=== PATIENT | male | born 1965 | race Caucasian/White ===

== ENCOUNTER 2024-10-24 12:36 | Inpatient (IN) | payer OTHER, SELFPAY ==
--- OUTSIDE RECORDS SUMMARY | 2023-06-02 09:00 | XMS_ITS ---
Author Organization [facility]ILL[facility] Address [address] [place] [address] Care Team Providers Care Digital Media Associate Name Role Phone Rodolfo Jang [facility] [phone] REASON FOR VISIT test results MEDICATIONS Medication SIG (Take, Route, Fr equency, Duration) Notes Start Date End Date Status Lisinopril 20 MG 1 tablet Orally Once a day for 90 days Active Encounters Encounter Location Date Provider Diagnosis [address] [address] 06/02/2023 Rodolfo Jang Colon cancer screening Z12.11 ASSESSMENTS Encounter Date Diagnosis Assessment Notes Treatment Notes Treatment Clinical Notes Section Notes 06/02/2023 Colon cancer screening (ICD-10 - Z12.11) cologuard negative at this time repeat 2026 ( 3years ) 94 % accurate as opposed to colonscopy that is 99 % accurate colonoscopy is test of choice PLAN OF TREATMENT Treatment Notes Assessment Notes Colon cancer screening cologuard negative at this time repeat 2026 ( 3years ) 94 % accurate as opposed to colonscopy that is 99 % accurate colonoscopy is test of choice Next Appt Details Follow Up: yearly for physic al examination, Reason: Progress Notes * Jed TOLEDODOB:1965 (57 yo M)Acc No.[id number]:06/02/2023 Patient: TREJeremiasJed Provider: Rodolfo Jang D.O. :1965 Age:57 Y Sex:Male Date:06/02/2023 Address:[address] [id number] Subjective: * Chief Complaints: * Test results * HPI: *: phone call for test results cologuard was done 05/18/2023 was negative. * Medical History: * Surgical History: * Hospitalization/Major Diagno stic Procedure: * Medications: TakingLisinopril 20 MG Tablet 1 tablet Orally Once a day Taking Lisinopril 20 MG Tablet 1 tablet Orally Once a day Objective: Assessment: * Assessment: 1. Colon cancer screening - Z12.11 (Primary) Plan: * Treatment: * Procedure Codes: * Follow Up: yearly for physical examination * Billing Information: * Visit Code: 07082 PHN E/M by PHYS 11-20 MIN. * Procedure Codes: * Sign off status: Completed true * Provider: Rodolfo Jang D.O. Date: 06/02/2023 History and Physical Notes * HPI (History of Present Illness) Category Sub-Category Detail Notes Category Not es * phone call for test results cologuard was done 05/18/2023 was negative
--- OUTSIDE RECORDS SUMMARY | 2023-06-14 10:30 | XMS_ITS ---
Author Organization [facility]ILLING [facility]ACILITY [facility] Address [address] [place] [address] Care Team Providers Care Rubber Insulator Name Role Phone Nate Woods Unavailable [phone] ALLERGIES Allergen (clinical drug ingredient) Drug/Non Drug Allergy documented on EMR Reaction Allergy Type Onset Date Status Penicillin rash Drug Allergy Active REASON FOR REFERRAL Reason 2 lesion to right po sterior torso Diagnosis 1 Primary hypertension (I10) Diagnosis 2 Skin lesions (L98.9) Referral Organization [facility] Referring Provider First Name Nate Referring Provider Last Name Chuck Referring Provider Speciality Family Med icine Referred Provider Specialty Dermatology Referral Priority Routine REASON FOR VISIT Med refill MEDICATIONS Medication SIG (Take, Route, Fr equency, Duration) Notes Start Date End Date Status Lisinopril 20 MG 1 tablet Orally Once a day for 90 days 06/14/2023 Active Lisinopril 20 MG 1 tablet Orally Once a day for 90 days Active SOCIAL HISTORY Tobacco Use: Social History Observation Description Date Details (start date - stop date) Never Smoker NA - NA Sex Assigned At : Social History Observation Description Sex Assigned At Unknown Tobacco Use/Smoking Question Answer Notes Are you a nonuser Alcohol Questionnaire Question Answer Notes Did you have a drink contain ing alcohol in the past year? Yes How often did you have a dri nk containing alcohol in the past year? 2 to 3 times a week (3 points) How many drinks did you have on a typical day when you were drinking in the past year? 5 or 6 drinks (2 points) How often did you have 6 or more drinks on one occasion in the past year? Monthly (2 points) Points 7 Interpretation Positive Section Notes: Lives with , brother sta callie with him while going through a divorce, 1 dog inside, also has hunting dogs. 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 VITAL SIGNS Temperature 98.4 degrees Fahrenheit 06/14/19 24 Heart Rate 86 /min 06/14/2023 Oximetry 98 % 06/14/2023 Blood pressure systolic 118 mm Hg 06/14/19 24 Blood pressure diastolic 80 mm Hg 024 Respiratory Rate 18 /min 06/14/2023 Weight 214.6 lbs 06/14/2023 Height 71.25 in 06/14/2023 BMI 29.72 06/14/2023 Weight-kg 97.34 kg 06/14/2023 Encounters Encounter Location Date Provider Diagnosis [facility] [address] [place] [address] 06/14/2023 Nate Woods Primary hypertension I10 and Skin lesions L98.9 ASSESSMENTS Encounter Date Diagnosis Assessment Notes Treatment Notes Treatment Clinical Notes Section Notes 06/14/2023 Primary hypertension (ICD-10 - I10) 06/14/2023 Skin lesions (ICD-10 - L98.9) PLAN OF TREATMENT Medication Medication Name Sig Start Date Stop Date Notes Lisinopril 20 MG 1 tablet Orally Once a day for 90 days Referrals Referral Date Details 2 lesion to right po sterior torso Next Appt Details Follow Up: prn, Reason: Progress Notes * Jed TOLEDODOB:1965 (57 yo M)Acc No.[id number]:06/14/2023 Patient: Jed TOLEDO Provider: Nate Woods DO :1965 Age:57 Y Sex:Male Date:06/14/2023 Address:[address] [place], [place] [id number] Subjective: * Chief Complaints: * Med refill * HPI: Depression/Anxiety Screening: PHQ-2 (2015 Edition)* Little interest or pleasure in doing things? Not at all, Feeling down, depressed or hopeless? Not at all, Total score: 0. Depression Screening: MARIANO-7 (2018 Edition) Feeling nervous, anxious, or on edge Not at all, Not being able to stop or control worrying Not at all, Worrying too much about different things Not at all, Trouble relaxing Not at all, Being so restless that it is hard to sit still Not at all, Becoming easily annoyed or irritable Not at all, Feeling afraid as if something awful might happen Not at all, Total MARIANO-7 Score 0, Interpretation of Total (0 to 4) No Anxiety. * ROS: General/Constitutional: General Denies:, chills, fatigue, fever. Eyes Denies:, blurred vision. ENT DENIES: , ear(s) pain, hearing decreased, nose congestion/drainage. Cardiovascular DENIES: , chest pain or tightness, irregular heartbeat, palpitations. Respiratory DENIES: , cough, shortness of breath, wheezing. Gastrointestinal DENIES: , abdominal pain, constipation, diarrhea, nausea, vomiting. Genitourinary DENIES: , dysuria, polyuria. Skin right post aspect to lesions with brown crusting. Musculoskeletal DENIES: , back pain, muscle aches. Peripheral Vascular DENIES: , claudication, varicose veins. Endocrine DENIES: , cold intolerance, heat intolerance, polydipsia. Hematology DENIES: , bleeding prolonged, bruising easily, glands swollen. * Medical History: * Surgical History: neck and back C7 1986right arm 1984nose surgery 1983Left hand 11/2022 * Hospitalization/Major Diagno stic Procedure: Denies Past Hospitalization * Family History: Father: alive 82 yrs, diagnosed with Hypertension, Hyperlipidemia, Coronary atherosclerosis. Mother: alive 80 yrs. Paternal G F: , diagnosed with Coronary atherosclerosis. Paternal G M: , diagnosed with Coronary atherosclerosis. * Social History: Tobacco Use: Tobacco Use/Smoking Are you a nonuser. Habits (drugs/alcohol/caffeine): Caffeine Caffeinated beverages Yes, -Coffee (cups per day) 1. Alcohol Use alcohol currently Yes, Drinks per week 5-6 drinks 2-3 times a week. Alcohol Questionnaire Did you have a drink containing alcohol in the past year? Yes, How often did you have a drink containing alcohol in the past year? 2 to 3 times a week (3 points), How many drinks did you have on a typical day when you were drinking in the past year? 5 or 6 drinks (2 points), How often did you have 6 or more drinks on one occasion in the past year? Monthly (2 points), Points 7, Interpretation Positive. Drugs Have you used drugs other than for medical reasons? No. Lives with , brother staying with him while going through a divorce, 1 dog inside, also has hunting dogs. 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 * Medications: TakingLisinopril 20 MG Tablet 1 tablet Orally Once a day Medication List reviewed and reconciled with the patientTaking Lisinopril 20 MG Tablet 1 tablet Orally Once a day Medication List reviewed and reconciled with the patient * Allergies: Penicillin: rash - Allergy - Criticality Unknownno[Allergies Verified] Objective: * Vitals: Temp:98.4F, HR:86, Oxygen sat:98%, BP:118/80mm Hg, RR:18/min, Wt:214.6lbs, Wt Chg: -9.4 lbs, Wt Chg %: -4.2%, Ht:71.25in, BMI:29.72, Wt-k.34 kg. * Examination: General Examination *: GENERAL APPEARANCE: alert and oriented, no acute distress, pleasant, well nourished. HEAD: atraumatic, normocephalic. EYES: extraocular movements intact, conjunctiva clear, sclera non-icteric. EARS: auditory canal clear, light reflex present, tympanic membrane intact. NOSE: nares patent, no lesions . THROAT: no erythema, no exudate, pharynx normal, tonsils normal, uvula midline . LYMPH NODES: no anterior cervical adenopathy. HEART: S1/S2 normal, regular rate and rhythm, no murmurs, no rubs, no gallops. LUNGS: clear to auscultation, good air movement, no respiratory distress. ABDOMEN: soft, non-tender, normal bowel sounds, non-distended. SKIN: s uspicious lesions x 2 to right side/post. EXTREMITIES: no edema, capillary refill normal. PERIPHERAL PULSES: 2+ throughout. NEUROLOGIC: alert, cooperative, moving all extremities spontaneously, non-focal. MUSCULOSKELETAL: no swelling or deformity. Assessment: * Assessment: 1. Primary hypertension - I10 (Primary) 2. Skin lesions - L98.9 Plan: * Treatment: * Procedure Codes: 27190 Anxiety [id number] Depression [id number] Nicotine Screening * Follow Up: prn * Billing Information: * Visit Code: 54350 Level 3 Est Patient Chronic Care. * Procedure Codes: 61022 Anxiety Screening. 3351F Depression Screening - NEGATIVE Screening (PHQ9 <10). 1036F Nicotine Screening - Non-user (Current). * Sign off status: Completed true * Provider: Nate Woods DO Date: 06/14/2023 History and Physical Notes * HPI (History of Present Illness) Category Sub-Category Detail Notes Category Not es Depression/Anxiety Screening PHQ-2 (2014 Edition)* Little interest or pleasure in doing things?: Not at all Feeling down, depressed or hopeless?: No t at all Total score:: 0 Depression Screening MARIANO-7 (2018 Edition) Feelin g nervous, anxious, or on edge: Not at all Not being able to stop or control worryi ng: Not at all Worrying too much about different things : Not at all Trouble relaxing: Not at all Being so restless that it is hard to sit still: Not at all Becoming easily annoyed or irritable: No t at all Feeling afraid as if something awful mickie ht happen: Not at all Total MARIANO-7 Score: 0 Interpretation of Total: (0 to 4) No Anx iety Examination Category Sub-Category Detail Notes Category Not es General Examination * GENERAL APPEARANCE: alert and oriented, no acute distress, pleasant, well nourished HEAD: atraumatic, normocep halic EYES: extraocular movement s intact, conjunctiva clear, sclera non-icteric EARS: auditory canal clear , light reflex present, tympanic membrane intact NOSE: nares patent, no les ions THROAT: no erythema, no exud ate, pharynx normal, tonsils normal, uvula midline LYMPH NODES: no anterior cervical adenopathy SKIN: suspicious lesions x 2 to right side/post HEART: S1/S2 normal, regula r rate and rhythm, no murmurs, no rubs, no gallops LUNGS: clear to auscultatio n, good air movement, no respiratory distress ABDOMEN: soft, non-tender, no rmal bowel sounds, non-distended MUSCULOSKELETAL: no swelling or defor mity EXTREMITIES: no edema, capillary refill normal PERIPHERAL PULSES: 2+ throughout NEUROLOGIC: alert, cooperative, moving all extremities spontaneously, non-focal Consultation Request Notes Referral Date Referring Provider Referred Provider Not es 06/14/2023 Nate Woods , 2 lesion to ri ght posterior torso
--- OUTSIDE RECORDS SUMMARY | 2023-10-03 08:36 | XMS_ITS ---
Author Organization [facility]ILLING FACILITY [facility] Address [address] [place] [address] Care Team Providers Care Bridge Maintainer Name Role Phone Alicia Underwood [phone] REASON FOR VISIT Medication Refill MEDICATIONS Medication SIG (Take, Route, Fr equency, Duration) Notes Start Date End Date Status Lisinopril 20 MG 1 tablet Orally Once a day for 90 days 06/14/2023 Active Encounters Encounter Location Date Provider Diagnosis [address] [address] 10/03/2023 Alicia Underwood Primary hypertension I10 ASSESSMENTS Encounter Date Diagnosis Assessment Notes Treatment Notes Treatment Clinical Notes Section Notes 10/03/2023 Primary hypertension (ICD-10 - I10) PLAN OF TREATMENT Medication Medication Name Sig Start Date Stop Date Notes Lisinopril 20 MG 1 tablet Orally Once a day for 90 days Progress Notes * Jed TOLEDODOB:1965 (57 yo M)Acc No.[id number]:10/03/2023 Patient: Jed TOLEDO :1965 Age:57 Y Sex:Male Address:[place] [address] * Refills Refill Lisinopril Tablet, 20 MG, Orally, 90, 1 tablet, Once a day, 90 days, Refills=0 * true * Date:
[2024-10-24] VITALS (25 sets, daily range): BP systolic 108–168; BP diastolic 79–109; PULSE 50–89; RESP 13–21; TEMP 36.1–36.8; O2SAT 97–100; BMI 25.0
--- NOTE | 2024-10-24 | ECHO_ITS ---
Patient Info Name: Jed Moore Age: 58 years : 1965 Gender: Male Ht: 73 in Wt: 185 lbs BSA: 2.08 m2 HR: 53 bpm BP: 154 / 101 mmHg Heart Rhythm: Sinus Rhythm Technical Quality: Good Exam Date: 10/24/2024 3:37 PM Patient Status: I Admit Date: 10/24/2024 Exam Type: CA echo dop color flow w con Complete two-dimensional, color flow and Doppler transthoracic echocardiogram is performed with contrast to opacify the left ventricle and to improve the deliniation of the left ventricle endocardial borders. Staff Referring Physician: Nader Zhong Stem Crusher: Lanny Thomas Attending Provider: Zeb Valentine Contrast/Agitated Saline Contrast/Ag. Saline: Definity Amount: 2.00 ml Administered By: Lanny Thomas Summary 1. Left ventricular chamber dimension is normal. 2. Left ventricular systolic function is mildly reduced, estimated at 45-50. 3. There is no increased left ventricular wall thickness. 4. The left ventricular diastolic function is grade I diastolic dysfunction. 5. The apical septum, and apical cap are akinetic. 6. The anteroseptal wall, apical lateral wall, apical inferior wall, mid inferior wall, and mid inferoseptal are hypokinetic. 7. Left atrial chamber dimension is mildly enlarged. 8. There is moderate mitral valve regurgitation. 9. There is mild tricuspid valve regurgitation. 10. There is mild pulmonic regurgitation. Left Ventricle Left ventricular chamber dimension is normal. Left ventricular systolic function is mildly reduced, estimated at 45-50. There is no increased left ventricular wall thickness. The left ventricular diastolic function is grade I diastolic dysfunction. The apical septum, and apical cap are akinetic. The anteroseptal wall, apical lateral wall, apical inferior wall, mid inferior wall, and mid inferoseptal are hypokinetic. All other mackey appear normal. Right Ventricle Right ventricular chamber dimension is normal. Right ventricular systolic function is normal. Left Atria Left atrial chamber dimension is mildly enlarged. Right Atria Right atrial chamber dimension is normal. Atrial Septum Intact interatrial septum visualized by color flow imaging. Aortic Valve The aortic valve is trileaflet. There is no aortic valve sclerosis. There is no aortic valve stenosis. There is trace aortic valve regurgitation. Pulmonic Valve The pulmonic valve is normal. There is no pulmonic valve stenosis. There is mild pulmonic regurgitation. Mitral Valve The mitral valve has normal leaflets. There is no mitral valve stenosis. There is moderate mitral valve regurgitation. Tricuspid Valve The tricuspid valve leaflets are normal. There is no significant tricuspid valve stenosis. There is mild tricuspid valve regurgitation. No pulmonary hypertension, estimated pulmonary arterial systolic pressure is 23 mmHg. Pericardium/Pleural The pericardium appears normal. There is trivial pericardial effusion. Inferior Vena Cava Normal inferior vena cava with >50% collapse upon inspiration consistent with normal right atrial pressure, 5 mmHg. Aorta The aortic root size at the sinus of Valsalva is mildly dilated. Left Ventricular Outflow Tract Name Value Normal LVOT 2D LVOT Diameter 2.3 cm LVOT Doppler LVOT Peak Velocity 112 cm/s LVOT Peak Gradient 5 mmHg LVOT Mean Gradient 2 mmHg LVOT VTI 24 cm LVOT Stroke Volume 98 ml LVOT CO 5.2 l/min LVOT CI 2.5 l/min/m2 Pulmonic Valve Name Value Normal RVOT Doppler RVOT Peak Velocity 73 cm/s RVOT Peak Gradient 2 mmHg PV Doppler PV Peak Velocity 88 cm/s PV Peak Gradient 3 mmHg Mitral Valve Name Value Normal MV Diastolic Function MV E Peak Velocity 51 cm/s MV A Peak Velocity 54 cm/s MV E/A 0.9 MV Decel Time (PW) 128 ms MV Annular TDI MV E/e' (Septal) 6.6 MV E/e' (Lateral) 4.7 MV E/e' (Average) 5.6 Tricuspid Valve Name Value Normal TV Regurgitation Doppler TR Peak Velocity 210 cm/s TR Peak Gradient 18 mmHg Estimated PAP/RSVP RA Pressure 5 mmHg <=5 PA Systolic Pressure 23 mmHg <36 RV Systolic Pressure 23 mmHg <36 Aortic Valve Name Value Normal AV Doppler AV Peak Velocity 142 cm/s AV Peak Gradient 8 mmHg AV Area (Cont Eq Arturo) 3.2 cm2 AV DI (Arturo) 0.79 AV Regurgitation 2D LVOT Area 4.1 cm2 Ventricles Name Value Normal LV Dimensions 2D/MM IVS Diastolic Thickness (2D) 0.7 cm 0.6-1.0 LVIW Diastolic Thickness (2D) 0.8 cm 0.6-1.0 LVOT Diameter 2.3 cm LV Fractional Shortening/Ejection Fraction 2D/MM LV Diastolic Volume (4C MOD) 205 ml LV EF (4C MOD) 50 % LV Diastolic Volume (2C MOD) 194 ml LV EF (2C MOD) 42 % LV Diastolic Volume (BP MOD) 204 ml 62-150 LV Diastolic Volume Index (BP MOD) 98 ml/m2 34-74 LV Systolic Volume (BP MOD) 108 ml 21-61 LV Systolic Volume Index (BP MOD) 52 ml/m2 11-31 LV EF (BP MOD) 47 % 52-72 LV Diastolic Length (4C) 9.6 cm LV Systolic Length (4C) 8.5 cm LV Stroke Volume (4C MOD) 102 ml Atria Name Value Normal LA Dimensions LA Volume (4C A-L) 95 ml LA Volume (BP A-L) 88 ml RA Dimensions RA Systolic Major [place] Length (4C) 5.4 cm 2.1-2.7 RA Area (4C) 17.1 cm2 <=18.0 Wall Motion Scoring Wall Motion Scoring Index: 1.65 Report Signatures
--- NOTE | ~2024-10-24 | XR_ITS ---
EXAMINATION: XR chest 2V DATE: 10/24/2024 13:21 INDICATION: Chest pain TECHNIQUE: PA and lateral views of the chest were obtained. COMPARISON: None FINDINGS: Air-fluid level in the stomach which underlies the mildly elevated left hemidiaphragm. No focal airspace opacities, pulmonary edema, pleural effusion or pneumothorax. The cardiomediastinal silhouette is normal. Mild thoracic spondylosis. IMPRESSION: 1. No acute cardiopulmonary disease. Reviewed, dictated and finalized at location A.
--- NOTE | 2024-10-24 12:38 | ECG_ITS ---
Test Date: 2024-10-24 12:41:59 Measurements Intervals [place] Rate: 59 P: 60 PA: 191 QRS: -15 QRSD: 108 T: 29 QT: 432 QTc: 429 Interpretive Statements SINUS BRADYCARDIA WITH OCCASIONAL SUPRAVENTRICULAR PREMATURE COMPLEXES POSSIBLE RIGHT VENTRICULAR CONDUCTION DELAY CONSIDER ANTERIOR INFARCT, AGE INDETERMINATE BASELINE ARTIFACT No previous ECG available for comparison Electronically Signed On 10-24-2024 12:47:05 CDT by Rhys Burr D.O.
[2024-10-24 13:03] LABS: Hematocrit 40.7 % (42.0-52.0); Hemoglobin 13.5 g/dL (14.0-18.0); Immature Granulocyte Percent A 0.4 % (0-0.5); Immature Platelet Fraction Pct 7.6 % (0.9-11.2); Lymphocytes Absolute Auto 1.34 K/mm3 (0.9-3.2); Mean Corpuscular HGB Conc 33.2 g/dl (32-36); Mean Corpuscular Hemoglobin 32.2 pg (26-34); Mean Corpuscular Volume 97.1 fl (80-100); Nucleated Red Blood Cells Absolute Auto 0.000 K/mm3 (0.0-0.012); Nucleated Red Blood Cells Perc 0.0 % (0.0-0.2); Platelet Count Result 124 k/mm3 (150-375); Red Blood Count 4.19 M/mm3 (4.6-6.20); White Blood Count 5.3 K/mm3 (4.5-10.0)
[2024-10-24] MEDS: ASPIRIN 81 MG CHEWABLE TABLET 324 MG PO (13:10)
[2024-10-24 13:14] LABS: Alanine Aminotransferase 31 U/L (6-50); Albumin Level 4.9 g/dL (3.5-5.1); Alkaline Phosphatase 55 U/L (38-126); Anion Gap 13 mmol/L (4-12); Aspartate Amino Transferase 31 U/L (17-59); Bilirubin,Total 1.1 mg/dL (0.2-1.3); Blood Urea Nitrogen 20 mg/dL (9-20); Calcium 9.3 mg/dL (8.4-10.2); Carbon Dioxide 21 mmol/L (22-30); Chloride 100 mmol/L (98-107); Estimated CRCL calculation 111 ml/min; Estimated Glomerular Filt Rate > 60; Glucose 147 mg/dL (65-110); Lipase 55 U/L (23-300); Potassium 3.5 mmol/L (3.4-5.0); Sodium 134 mmol/L (137-145); Total Protein 7.8 g/dL (6.3-8.2)
[2024-10-24 13:26] LABS: INR 1.1; Partial Thromboplastin Time 34.7 Seconds (22.3-36.8); Prothrombin Time 14.0 Seconds (11.1-14.7)
[2024-10-24 13:28] LABS: Troponin I 0.089 ng/mL (0.000-0.034)
--- NOTE | 2024-10-24 13:42 | ED.GENADULT ---
HPI - General Adult General Chief complaint: Chest Pain Stated complaint: chest pain Time Seen by Provider: 10/24/24 12:51 History of Present Illness HPI narrative: This is a 58-year-old male history of hypertension, high cholesterol being treated with lifestyle modifications presenting for chest pain. Chest pain started at 11:00 a.m. after eating a salad. At 1st the patient thought it was just heartburn however then he developed pain in his left arm as well. Pain is 2/10 intensity and constant. He has never had pain like this before there are no exacerbating alleviating factors. Associated with nausea but no vomiting. No diaphoresis or exertional component. Father has history of open-heart surgery at 69 years of age. No tobacco use. Related Data Allergies Allergy/AdvReac Type Severity Reaction Status Date / Time Penicillins Allergy Rash Verified 10/24/24 12:46 Exam Narrative: APPEARANCE: No apparent distress. Head: atraumatic. EYES: EOMI, NOSE: Atraumatic NECK: Trachea midline RESPIRATORY: No increased rate of breathing clear to auscultation CARDIOVASCULAR: RRR, no peripheral edema ABDOMINAL: Non-distended soft nontender MUSCULOSKELETAl: No obvious deformities NEURO: Alert. Moving 4/4 extremities SKIN:: Warm, dry. Normal color PSYCHIATRIC: Normal affect Course Vital Signs Vital signs: Vital Signs Temperature 97.0 F L 10/24/24 12:43 Pulse Rate 60 10/24/24 12:43 Respiratory Rate 16 10/24/24 12:43 Blood Pressure 168/100 H 10/24/24 12:43 Pulse Oximetry 100 10/24/24 12:43 Temperature 97.0 F L 10/24/24 12:43 Pulse Rate 57 L 10/24/24 13:30 Respiratory Rate 18 10/24/24 13:30 Blood Pressure 150/101 H 10/24/24 13:01 Pulse Oximetry 100 10/24/24 13:30 Medical Decision Making [facility] Narrative Medical decision making narrative: -Course: 58-year-old male presenting with chest pain radiating to his left arm. Initial EKG showed isolated ST elevations in V3 with no reciprocal changes. EKG was repeated with no changes. Initial troponin 0.089. Patient given oxygen and nitroglycerin for cardiac chest pain. Case and EKG were discussed with Nelda James (cardio mid level.) She has discussed EKG in the case with Interventional Cardiology. EKG does not meet STEMI criteria at this time. Patient will be admitted to the hospital for further management of his NSTEMI. -DDX includes but is not limited to: ACS, pneumonia, PE, pneumothorax Vital Signs Vital Signs: Vital Signs Temperature 97.0 F L 10/24/24 12:43 Pulse Rate 60 10/24/24 12:43 Respiratory Rate 16 10/24/24 12:43 Blood Pressure 168/100 H 10/24/24 12:43 Pulse Oximetry 100 10/24/24 12:43 Temperature 97.0 F L 10/24/24 12:43 Pulse Rate 57 L 10/24/24 13:30 Respiratory Rate 18 10/24/24 13:30 Blood Pressure 150/101 H 10/24/24 13:01 Pulse Oximetry 100 10/24/24 13:30 Lab Data 10/24/24 12:54 10/24/24 12:54 Labs: Lab Results 10/24/24 Range/Units 12:54 WBC 5.3 (4.5-10.0) K/mm3 RBC 4.19 L (4.6-6.20) M/mm3 Hgb 13.5 L (14.0-18.0) g/dL Hct 40.7 L (42.0-52.0) % MCV 97.1 (80-100) fl MCH 32.2 (26-34) pg MCHC 33.2 (32-36) g/dl RDW 13.1 (11.5-14.5) % Plt Count 124 L (150-375) k/mm3 MPV 11.3 H (7.4-10.4) fl Immature Gran % (Auto) 0.4 (0-0.5) % Neut % (Auto) 65.5 (45.5-73.1) % Lymph % (Auto) 25.2 (18.3-44.2) % [place] % (Auto) 7.0 (2.6-8.5) % Eos % (Auto) 1.3 (0-4.4) % Baso % (Auto) 0.6 (0.2-1.2) % Lymph # (Auto) 1.34 (0.9-3.2) K/mm3 [place] # (Auto) 0.4 (0.1-0.6) K/mm3 Eos # (Auto) 0.1 (0-0.3) K/mm3 Baso # (Auto) 0.0 (0.0-0.1) K/mm3 Abs Immat Gran (auto) 0.02 (0.00-0.031) K/mm3 Absolute Neuts (auto) 3.5 (1.3-6.7) K/mm3 Absolute Nucleated RBC 0.000 (0.0-0.012) K/mm3 Nucleated RBC % 0.0 (0.0-0.2) % % Immature Plt Fraction 7.6 (0.9-11.2) % PT 14.0 (11.1-14.7) Seconds INR 1.1 APTT 34.7 (22.3-36.8) Seconds Sodium 134 L (137-145) mmol/L Potassium 3.5 (3.4-5.0) mmol/L Chloride 100 (98-107) mmol/L Carbon Dioxide 21 L (22-30) mmol/L Anion Gap 13 H (4-12) mmol/L BUN 20 (9-20) mg/dL Creatinine 0.70 (0.7-1.3) mg/dL Estim Creat Clear Calc 111 ml/min Estimated GFR > 60 (59 - ) Glucose 147 H (65-110) mg/dL Calcium 9.3 (8.4-10.2) mg/dL Total Bilirubin 1.1 (0.2-1.3) mg/dL AST 31 (17-59) U/L ALT 31 (6-50) U/L Alkaline Phosphatase 55 (38-126) U/L Troponin I 0.089 H* (0.000-0.034) ng/mL Total Protein 7.8 (6.3-8.2) g/dL Albumin 4.9 (3.5-5.1) g/dL Lipase 55 (23-300) U/L Critical Care Time Critical Care Time Critical Care Time: Yes Total Critical Care Time: 35 Discharge Plan Discharge Clinical Impression: Non-ST elevation IN (NSTEMI) Patient Disposition: Home Condition: Stable Instructions: Antibiotic Form Patient Language: Yakut Follow-up/Referrals: UNKNOWN,DOCTOR [Non-Staff]
--- NOTE | 2024-10-24 13:50 | ECG_ITS ---
Test Date: 2024-10-24 13:52:02 Measurements Intervals [place] Rate: 56 P: 43 RI: 196 QRS: -2 QRSD: 114 T: 36 QT: 433 QTc: 421 Interpretive Statements SINUS BRADYCARDIA WITH SINUS ARRHYTHMIA CONSIDER RIGHT VENTRICULAR CONDUCTION DELAY LOW QRS VOLTAGE IN PRECORDIAL LEADS CONSIDER ANTERIOR INFARCT, AGE INDETERMINATE ABNORMAL ECG Compared to ECG 10/24/2024 12:41:59 NO SIGNIFICANT CHANGE Electronically Signed On 10-24-2024 14:30:55 CDT by Rhys Burr D.O.
--- OUTSIDE RECORDS SUMMARY | 2024-10-24 14:05 | XMS_ITS | Clinical Summary ---
Author Organization [facility] Address [address] [address] Care Team Providers Care Flight Instructor Name Role Phone Unavailable Primary Care Provider Unavailabl e Allergies Active Allergy Reactions Criticality Noted Date Comments Penicillin Rash Low 08/02/2022 Medications lisinopriL (PRINIVIL) 20 mg tablet Take 20 mg by mouth daily. 05/01/2021 Active Active Problems Problem Noted Date Diagnosed Date Hyperlipidemia, unspecified 05/09/2021 Overview (01/11/2023): Last Assessment & Plan: Uncontrolled? 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 Gender Identity Not on file Sexual Orientation Not on file Last Filed Vital Signs Vital Sign Reading Time Taken Comments Blood Pressure 142/90 01/11/2023 8:02 AM PROJECT SCIENTIST Pulse 79 01/11/2023 8:00 AM PROJECT SCIENTIST Temperature - - Respiratory Rate - - Oxygen Saturation - - Inhaled Oxygen Concentration - - Weight 99.8 kg (220 lb) 01/11/2023 8:00 AM PROJECT SCIENTIST Height 185.4 cm (6' 1) 01/11/2023 8:00 AM PROJECT SCIENTIST Body Mass Index 29.03 01/11/2023 8:00 AM PROJECT SCIENTIST Plan of Treatment Health Maintenance Due Date Last Done Comments DTAP/TDAP/TD VACCINES (1 - Tdap) 12/17/1983 HEPATITIS B VACCINES (1 of 3 - 19+ 3-dose series) 12/17/1983 COLORECTAL SCREENING 2009 Colorectal Cancer Screening 2009 FIT-DNA Q 3 years 2009 FIT/FOBT Q 1 year 2009 Flex Sig/CT Colonography Q 5 years 2009 ZOSTER VACCINE (1 of 2) 2014 COVID-19 Vaccine ( season) 2023, 09/25/2020 INFLUENZA VACCINE (#1) 2024 11/20/2021 Insurance CHOICE [id number]
--- OUTSIDE RECORDS SUMMARY | 2024-10-24 14:05 | XMS_ITS | Clinical Summary ---
Author Organization [facility] Address [address] [place] [address] Phone Care Team Providers Care Hands And Dial Inspector Name Role Phone Rufina Abarca DO Primary Care Provider [phone] Allergies No known active allergies Medications lisinopriL (PRINIVIL,ZESTRI L) 20 mg tablet Take 1 tablet (20 mg total) by mouth daily 90 tablet 05/01/2021 Active Active Problems Problem Noted Date Diagnosed Date Hypertension, essential 05/09/2021 Assessment & Plan (05/09/2021 9:09 PM FILM DEVELOPER): Uncontrolled -restart lisinopril 20 mg daily -monitor blood pressure at home -patient will return in the next 3-4 months after getting insurance with his new job for full labs Hyperlipidemia, unspecified 05/09/2021 Assessment & Plan (05/09/2021 9:09 PM FILM DEVELOPER): Uncontrolled? -was told it elevated cholesterol in the past, not currently on any medications -get lipid panel when patient returns after getting insurance Immunizations Immunization Administration Dates Next Due Pfizer SARS-CoV-2 Monovalent Vaccination (12+ Yrs) PURPLE 10/17/2020,09/25/2020 Surgical History Surgery Date Site/Laterality Comments ARM SURGERY BACK SURGERY Family History Medical History Relation Name Comments Coronary artery disease Father Liver cancer Father Colon cancer Neg Hx Relation Name Status Comments Father Social History Tobacco Use Types Packs/Day Years Used Date Smoking Tobacco: Never Smokeless Tobacco: Never AUDIT-C Answer Date Recorded Q1: How often do you have a drink containing alc ohol? 2-4 times a month 05/01/2021 Average Number of Drinks Not on file 022 Frequency of Binge Drinking Not on file 05/2021 PHQ-2 Answer Date Recorded PHQ-2 Total Score 0 05/01/2021 Sex and Gender Information Value Date Recorded Sex Assigned at Not on file Legal Sex Male 12:16 PM CDT Gender Identity Not on file Sexual Orientation Not on file Obstetrics History Last Filed Vital Signs Vital Sign Reading Time Taken Comments Blood Pressure 146/84 05/01/2021 2:06 PM FILM DEVELOPER Pulse 101 05/01/2021 2:06 PM FILM DEVELOPER Temperature 36.8 C (98.2 F) 12/19/2020 8:17 AM CDT Respiratory Rate 16 12/19/2020 8:17 AM CDT Oxygen Saturation 93% 05/01/2021 2:06 PM FILM DEVELOPER Inhaled Oxygen Concentration - - Weight 105.7 kg (233 lb) 05/01/2021 2:06 PM FILM DEVELOPER Height 188 cm (6' 2) 05/01/2021 2:06 PM FILM DEVELOPER Body Mass Index 29.92 05/01/2021 2:06 PM FILM DEVELOPER Plan of Treatment Health Maintenance Due Date Last Done Comments Colon Cancer Screening-Colonoscopy 1964 Hepatitis C Screening 1964 Prostate Cancer Screening-PSA 1964 DTaP/Tdap/Td Vaccine (1 - Tdap) 12/17/1975 Hepatitis B Screening 1982 Regular Well Visit/Exam 18-64 1982 Zoster Vaccine (1 of 2) 2014 Depression Screening 05/01/2022 05/01/2021 Covid-19 Vaccine (3 - 2023-2 5 season) 2023 10/17/2020, 09/25/2020 Influenza Vaccine (#1) 2024 Pneumococcal vaccine <65 Aged Out No longer eligible based on patient's age to complete this topic Insurance [facility] CHOICE PLUS Care Teams Hands And Dial Inspector Relationship Specialty Start Date End Date Rufina Abarca DO [address] [place] [address] PCP - General Family Medicine 05/01/21
[2024-10-24] MEDS: HEPARIN SOD/D5W 100 UNITS/ML 25,000 UNITS/250 ML BAG 10 UNITS IV CONT (14:20)
--- NOTE | 2024-10-24 15:11 | P.HP_ITS ---
H&P: HPI History of Present Illness Date/Time: 10/24/24 15:11 Chief Complaint: Chest pain Narrative: 58-year-old male presents the hospital with chest pain. He rates his pain a 7 out 10. He states that his pain radiates down his left arm. 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 Patient states that he woke up with chest pain that radiates down the left side of his arm. He states it is constant squeezing like pain. He denies nausea vomiting shortness of breath fever chills. He states that he has a family history of heart attacks including his father and grandfather. Lab work in ED shows hemoglobin 13.5, platelets of 124, sodium of 134, carbon dioxide of 21, anion gap 13, glucose of 147, 1st troponin 0.089, chest x-ray showing no acute process. EKG shows sinus bradycardia with PVCs. Repeat EKG shows no significant changes. Cardiology was consulted and placed and was put on heparin drip. Patient given nitro tab with little results applied nitro paste with some relief pain patient will be transferred to ICU for nitro drip. Review of Systems Review of Systems: 12 systems were reviewed and are negativ e except for as per HPI. [facility] Past Medical History Medical History (Updated 10/24/24 @ 20:26 by Renate Bales APRN) Hyperlipidemia Prediabetes Hypertension Hyperglycemia Family History Family History Father Heart disease Hypertension CABG (coronary artery bypass graft) planned Liver cancer Other Diabetes mellitus Social History Social History Smoking status: Never smoker Alcohol intake: current Drinks per week: 10 Substance use: never Lack of Transportation: No Lack of Food: Never True Current Housing: I Have Housing Concerned About Future Housing: No Difficulty Paying Gas/Electric Bills: No Difficulty Paying for Meds: No Currently Unemployed: No Education: High School Diploma/GED Difficulty w/ Childcare or Family Care: No Spiritual care concerns: No Meds Home Medications and Allergies Home Medications ?Medication ?Instructions ?Recorded ?Confirmed ?Type lisinopril 20 mg tablet 20 mg PO DAILY 10/24/24 08/09/21 History Allergies Allergy/AdvReac Type Severity Reaction Status Date / Time Penicillins Allergy Rash Verified 10/24/24 12:46 Vital Signs Vital Signs - 24 hr 10/24/24 12:43 10/24/24 12:51 10/24/24 12:52 Temperature 97.0 F L Pulse Rate 60 57 L 56 L Respiratory Rate 16 20 19 Blood Pressure 168/100 H 160/98 H Pulse Oximetry 100 98 100 10/24/24 13:00 10/24/24 13:01 10/24/24 13:21 Temperature Pulse Rate 53 L 55 L 55 L Respiratory Rate 13 15 20 Blood Pressure 150/101 H Pulse Oximetry 100 100 100 10/24/24 13:30 10/24/24 13:45 10/24/24 13:54 Temperature Pulse Rate 57 L 60 60 Respiratory Rate 18 17 21 H Blood Pressure 158/97 H Pulse Oximetry 100 100 100 10/24/24 14:00 10/24/24 14:01 10/24/24 14:15 Temperature Pulse Rate 54 L 59 L 56 L Respiratory Rate 20 14 17 Blood Pressure 155/109 H Pulse Oximetry 100 100 10/24/24 14:16 10/24/24 14:17 10/24/24 14:38 Temperature Pulse Rate 56 L 62 54 L Respiratory Rate 18 15 16 Blood Pressure 144/99 H 144/99 H 154/101 H Pulse Oximetry 100 100 98 Exam Narrative: General: well appearing, appears stated age. HEENT: normocephalic, atraumatic. Mucous membranes moist. EOMI, PERRLA, bilateral sclera anicteric, no conjunctival injection. Neck supple without JVD, lymphadenopathy, or bruit. Respiratory: clear to ascultation bilaterally. No rales/rhonic/wheezes. Cardiovascular: Regular rate and rhythm, normal S1-S2 upon ascultation. No murmurs, rubs, or clicks. PMI is nondisplaced, capillary refill less than 3 second. Abdomen: Soft, round, no pulsatile masses, nondistended and nontender. No rebound, no guarding. No CVA tenderness, no hepatosplenomegaly. Bowel sounds present to all four quadrants. No high pitch or tinkling sounds, resonant to percussion. Extremities: No cyanosis, clubbing, or edema present. Pulses are palpable 2/2. Active ROM to all four extremities. Neuro: Alert and orientated x 4. PERRLA. Cranial nerves 2-12 intact without focal deficit. Skin: Warm, dry, and intact, without rash, erythema, or lesion. Psych: pleasant, cooperative, normal speech, normal affect, no hallucinations, no dysarthia H&P: Results Labs Labs: Short CBC 10/24/24 Range/Units 12:54 WBC 5.3 (4.5-10.0) K/mm3 Hgb 13.5 L (14.0-18.0) g/dL Hct 40.7 L (42.0-52.0) % Plt Count 124 L (150-375) k/mm3 BMP 10/24/24 12:54 Sodium 134 L Potassium 3.5 Chloride 100 Carbon Dioxide 21 L BUN 20 Creatinine 0.70 Glucose 147 H Calcium 9.3 Cardiac Enzymes 10/24/24 Range/Units 12:54 Troponin I 0.089 H* (0.000-0.034) ng/mL Liver Function 10/24/24 Range/Units 12:54 Total Bilirubin 1.1 (0.2-1.3) mg/dL AST 31 (17-59) U/L ALT 31 (6-50) U/L Alkaline Phosphatase 55 (38-126) U/L Albumin 4.9 (3.5-5.1) g/dL Assessment and Plan Assessment and plan (1) Non-ST elevation HI (NSTEMI): Code(s): I21.4 - Non-ST elevation (NSTEMI) myocardial infarction Status: Acute Assessment and Plan: Cardiology consulted Trend troponins EKG p.r.n. Heparin drip Nitro paste Echocardiogram EF 45-50% left ventricle diastolic dysfunction grade 1 Patient with continued chest pain with nitro paste will transfer patient to ICU for nitro drip Patient found to have critical findings on his echocardiogram so he had emergent catheterization tonight Vianey (2) Hyponatremia: Code(s): E87.1 - Hypo-osmolality and hyponatremia Status: Acute Assessment and Plan: 134 on admission Repeat BMP in the morning (3) Hyperglycemia: Code(s): R73.9 - Hyperglycemia, unspecified Status: Acute Assessment and Plan: 137 on admission Patient states that his hemoglobin A1c is 0.6 Cl a checked about 4 5 months ago. He is doing lifestyle modifications. (4) Hyperlipidemia: Code(s): E78.5 - Hyperlipidemia, unspecified Status: Acute Assessment and Plan: Patient doing lifestyle modification Started on Crestor by Cardiology (5) Hypertension: Code(s): I10 - Essential (primary) hypertension Status: Acute Assessment and Plan: Cozaar started by Cardiology Quality VTE Prophylaxis VTE prophylaxis: mechanical ordered and pharmacologic ordered Hospitalist [facility] Advance Care Plan I have confirmed that the patient's Advanced Care Plan is present, code status is documented, or surrogate decision maker is listed in patient medical record.: Yes Medication Reconciliation I have utilized all available resources to obtain, update and review the patie nts current medications (includes all prescriptions, OTC, herbals, cannabis, and nutritional supplements).: Yes
--- NOTE | 2024-10-24 15:11 | ECG_ITS ---
Test Date: 2024-10-24 15:28:08 Measurements Intervals [place] Rate: 59 P: 25 AL: 185 QRS: -16 QRSD: 118 T: -1 QT: 417 QTc: 415 Interpretive Statements SINUS BRADYCARDIA INTRAVENTRICULAR CONDUCTION DELAY CANNOT R/O SEPTAL INFARCT, AGE INDETERMINATE BORDERLINE ST-T WAVE ABNORMALITY- INFERIOR LEADS ABNORMAL ECG Compared to ECG 10/24/2024 13:52:02 NO SIGNIFICANT CHANGE Electronically Signed On 10-24-2024 15:34:02 CDT by Rhys Burr D.O.
--- NOTE | 2024-10-24 15:11 | P.CONCA_ITS ---
Assessment and Plan Assessment and plan (1) Non-ST elevation OK (NSTEMI): Code(s): I21.4 - Non-ST elevation (NSTEMI) myocardial infarction Status: Acute Assessment and Plan: Presents with chest pain with radiation to the left arm. Chest pain remains at a 7/10 after administration of nitroglycerin but he thinks his arm pain might be a little bit better. Initial troponin 0.089. No ischemic changes noted on EKGs. * He was given full-dose aspirin in the emergency department * Continue heparin drip * Will start losartan for blood pressure control * Start statin * Continue telemetry * Nitroglycerin paste has been ordered * Trend troponin and repeat EKG with each troponin draw * Instructed patient to report any worsening chest pain or other symptoms to nursing staff * Stat echo * NPO at midnight for coronary angiogram tomorrow. History of Present Illness History of Present Illness Consult date/time: 10/24/24 15:11 Requesting physician: Sharath Mckinney MD Consult reason: chest pain Reason For Visit: NSTEMI Narrative: Jed Moore is a 58-year-old male with hypertension hyperlipidemia. This is a patient who comes to the hospital with a chief complaint of chest pain. Cardiology is consulted for NSTEMI. Patient developed substernal chest pain earlier today which he describes as feeling like there is a knot in his chest. He rates the pain at a 7/10 in intensity. Pain has been constant since onset. He also reports radiation of the pain to his left arm. He denies any nausea, diaphoresis, syncope, presyncope, shortness of breath, or palpitations. He has a family history of coronary artery disease with his dad undergoing bypass surgery at age of 69. He is a nonsmoker. He states that he has had hypertension for about 15 years which he does not take medication for and in May of this year he was made aware that he has hyperlipidemia. He elected to adopt lifestyle modifications for this and lost about 45 lb but he has never been on a statin. 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 At the time of my evaluation, he continues to report 7/10 chest pain and is lying in bed comfortably without any visible signs of distress. Nitroglycerin was administered immediately prior to my conversation with him. Review of Systems 2 Review of Systems: All systems reviewed & are unremarkable except as noted in HPI and below [facility] Family History Family History (Updated 10/24/24 @ 16:31 by Carol Loera RN) Father Heart disease Hypertension CABG (coronary artery bypass graft) planned Liver cancer Other Diabetes mellitus Social History Social History Smoking status: Never smoker Alcohol intake: current Drinks per week: 10 Substance use: never Lack of Transportation: No Lack of Food: Never True Current Housing: I Have Housing Concerned About Future Housing: No Difficulty Paying Gas/Electric Bills: No Difficulty Paying for Meds: No Currently Unemployed: No Education: High School Diploma/GED Difficulty w/ Childcare or Family Care: No Spiritual care concerns: No Meds Home Medications and Allergies Home Medications ?Medication ?Instructions ?Recorded ?Confirmed ?Type lisinopril 20 mg tablet 20 mg PO DAILY 10/24/2409/29 History Allergies Allergy/AdvReac Type Severity Reaction Status Date / Time Penicillins Allergy Rash Verified 10/24/24 12:46 Vital Signs Vital Signs - 24 hr 10/24/24 12:43 10/24/24 12:51 10/24/24 12:52 Temperature 36.1 C L Pulse Rate 60 57 L 56 L Respiratory Rate 16 20 19 Blood Pressure 168/100 H 160/98 H Pulse Oximetry 100 98 100 10/24/24 13:00 10/24/24 13:01 10/24/24 13:21 Temperature Pulse Rate 53 L 55 L 55 L Respiratory Rate 13 15 20 Blood Pressure 150/101 H Pulse Oximetry 100 100 100 10/24/24 13:30 10/24/24 13:45 10/24/24 13:54 Temperature Pulse Rate 57 L 60 60 Respiratory Rate 18 17 21 H Blood Pressure 158/97 H Pulse Oximetry 100 100 100 10/24/24 14:00 10/24/24 14:01 10/24/24 14:15 Temperature Pulse Rate 54 L 59 L 56 L Respiratory Rate 20 14 17 Blood Pressure 155/109 H Pulse Oximetry 100 100 10/24/24 14:16 10/24/24 14:17 10/24/24 14:38 Temperature Pulse Rate 56 L 62 54 L Respiratory Rate 18 15 16 Blood Pressure 144/99 H 144/99 H 154/101 H Pulse Oximetry 100 100 98 Exam 2 Const: General: comfortable, no acute distress, alert and awake O rientation/consciousness: patient oriented x3 HENMT: Head: normal to inspection Eyes: General: appearance normal, both eyes and all related structures P upils: Equal, round and reactive pupils present Neck: Neck: normal visual inspection, supple and no JVD Carotids: normal carotid upstroke Resp: Effort & Inspection: normal respiratory effort Auscultation: clear to auscultation bilaterally Cardio: Rate: regular rate Rhythm: regular rhythm Heart sounds: S1 normal heart sound present, S2 normal heart sound present and no murmurs GI: Auscultation: normal bowel sounds Skin: General skin exam: normal color Neuro: General: patient oriented x3 Cranial nerves: Yes Equal, round and reactive pupils present Extrem: General: normal to inspection Psych: Appearance: grossly normal Mental Status: mental status grossly normal Results Labs and Meds 10/24/24 15:23 10/24/24 12:54 Lab results: Cardiac Enzymes 10/24/24 Range/Units 12:54 AST 31 (17-59) U/L Troponin I 0.089 H* (0.000-0.034) ng/mL Coagulation 10/24/24 Range/Units 12:54 PT 14.0 (11.1-14.7) Seconds APTT 34.7 (22.3-36.8) Seconds CBC 10/24/24 Range/Units 12:54 WBC 5.3 (4.5-10.0) K/mm3 RBC 4.19 L (4.6-6.20) M/mm3 Hgb 13.5 L (14.0-18.0) g/dL Hct 40.7 L (42.0-52.0) % Plt Count 124 L (150-375) k/mm3 Lymph # (Auto) 1.34 (0.9-3.2) K/mm3 [place] # (Auto) 0.4 (0.1-0.6) K/mm3 Eos # (Auto) 0.1 (0-0.3) K/mm3 Baso # (Auto) 0.0 (0.0-0.1) K/mm3 Comprehensive Metabolic Panel 10/24/24 Range/Units 12:54 Sodium 134 L (137-145) mmol/L Potassium 3.5 (3.4-5.0) mmol/L Chloride 100 (98-107) mmol/L Carbon Dioxide 21 L (22-30) mmol/L BUN 20 (9-20) mg/dL Creatinine 0.70 (0.7-1.3) mg/dL Glucose 147 H (65-110) mg/dL Calcium 9.3 (8.4-10.2) mg/dL AST 31 (17-59) U/L ALT 31 (6-50) U/L Alkaline Phosphatase 55 (38-126) U/L Total Protein 7.8 (6.3-8.2) g/dL Albumin 4.9 (3.5-5.1) g/dL Patient Weight 10/24/24 23:59 Weight 84 kg
[2024-10-24] MEDS: NITROGLYCERIN SL 0.4 MG TABLET SUBLINGUAL (15:30)
[2024-10-24 15:31] LABS: Hematocrit 40.0 % (42.0-52.0); Hemoglobin 13.4 g/dL (14.0-18.0); Immature Granulocyte Percent A 0.4 % (0-0.5); Immature Platelet Fraction Pct 7.7 % (0.9-11.2); Lymphocytes Absolute Auto 0.78 K/mm3 (0.9-3.2); Mean Corpuscular HGB Conc 33.5 g/dl (32-36); Mean Corpuscular Hemoglobin 32.1 pg (26-34); Mean Corpuscular Volume 95.9 fl (80-100); Nucleated Red Blood Cells Absolute Auto 0.000 K/mm3 (0.0-0.012); Nucleated Red Blood Cells Perc 0.0 % (0.0-0.2); Platelet Count Result 129 k/mm3 (150-375); Red Blood Count 4.17 M/mm3 (4.6-6.20); White Blood Count 8.2 K/mm3 (4.5-10.0)
[2024-10-24 15:40] LABS: INR 1.2; Prothrombin Time 15.3 Seconds (11.1-14.7)
[2024-10-24 15:43] LABS: Partial Thromboplastin Time 159.5 Seconds (22.3-36.8)
[2024-10-24] MEDS: NITROGLYCERIN OINTMENT 1 INCH DOSE TRANSDERM (15:50)
[2024-10-24] MEDS: NITROGLYCERIN SL 0.4 MG TABLET (15:51)
[2024-10-24 15:54] LABS: Troponin I 0.566 ng/mL (0.000-0.034)
[2024-10-24] MEDS: PERFLUTREN LIPID MICROSPHERES 1.5 ML VIAL DILUTED TO 10 ML TOTAL VOLUME IV PUSH (16:18)
--- NOTE | 2024-10-24 16:18 | IVDEFINITY ---
Prior to administration of IV Definity the patient was educated on the risks and benefits of the imaging enhancing agent including potential adverse side effects. The patient verbalized understanding. Allergies were verified. No exclusion criteria were identified and at least one of the following inclusion criteria were met: 1) physician request, 2) patient technically difficult to image (per the [place] [employer] Echocardi[employer] guidelines of two or more segments not discernable within the apical view), or 3) questionable left ventricular function. ?
[2024-10-24] MEDS: MORPHINE SULFATE (*CRX) 2 MG/ML INJ IV PUSH (16:45)
--- NOTE | 2024-10-24 17:10 | PM.EVENT ---
Event Note Event Note Event Note: 1638 returned to patients room to discuss echo findings and recommendation for patient to be taken to the cardiac laborer [facility] this evening for coronary angiogram based on findings of apical akinesis and concern for LAD infarct. Patient continues to have 7/10 chest pain with no relief from nitro paste. Appears comfortable. Contacted interventionalist on daytime call coverage [phone], [phone] to notify of urgent cath based on echo findings and ongoing chest pain. Rec'd call back at [phone] with recommendation for ICU transfer and increasing antianginal therapy with nitro drip and plan for patient to be taken to the laborer [facility] as soon as possible. Patient and family members at bedside and on telephone verbalize understanding of and agreement with plan. RN aware of plans.
[2024-10-24] MEDS: TICAGRELOR 90 MG TABLET 180 MG PO (17:35)
[2024-10-24] MEDS: NITROGLYCERIN/D5W 200 MCG/ML 50 MG/250 ML BTL IV CONT (18:00)
[2024-10-24 18:06] LABS: Cholesterol 184 mg/dL (0-200); HDL Direct 56 mg/dL; Magnesium 1.9 mg/dL (1.6-2.3); Triglycerides 133 mg/dL (<150)
--- NOTE | 2024-10-24 18:07 | PC.NURSE ---
This patient, Jed Moore, was received from [[facility] ] on 10/24/24 at 1800. Patient/family oriented to unit policies and routines. Bedside report received from JIM Medina. Family at bedside.
--- NOTE | 2024-10-24 18:23 | PC.NURSE ---
Addendum entered by Shameka Fay RN 10/24/24 18:31: Heparin drip paused by cath lab radiology technician RN. Nitro drip transported with pt, infusing at a rate of 5 mcg/min Original Note: Pt to cardiac cath lab radiology technician via bed. Family at bedside
--- NOTE | 2024-10-24 18:34 | ADMGEN ---
This patient, Jed Moore, was admitted to Intensive Care Unit-5. Patient/family oriented to hospital policies and general routines including ID bracelet, bed and alarms, visiting hours, pain management, procedures, bathroom and other care routines, personal items, smoking policy, room service/diet, and visiting hours. Information on how to activate the Rapid Response Team has been discussed. Patient/Family are encouraged to report perceived risks to care and to ask questions if they do not understand what they are told or what they should do.
--- NOTE | 2024-10-24 18:36 | WPDMODSED ---
Moderate Sedation Note-Pt Data Patient Data Diagnosis: NSTEMI Present Complaint: NSTEMI Procedure to be performed/Plan: Coronary angiography, left heart cath, +/- PCI Allergies Allergy/AdvReac Type Severity Reaction Status Date / Time Penicillins Allergy Rash Verified 10/24/24 12:46 Home Medications ?Medication ?Instructions ?Recorded ?Confirmed ?Type lisinopril 20 mg tablet 20 mg PO DAILY 10/24/24 10/24/24 History Current Medications: Active Medications Heparin Sodium (Porcine) (Heparin Sodium 5,000 Units/Ml Vial) 4,000 units IV PUSH PRN PRN PRN Reason: aPTT less than 55 seconds Heparin Sodium (Porcine) (Heparin Sodium 5,000 Units/Ml Vial) 3,500 units IV PUSH PRN PRN PRN Reason: aPTT 55 - 70 seconds Heparin Sodium/Dextrose (Heparin Sodium/D5w 100 Units/Ml) 25,000 units in 250 mls @ 0 mls/hr IV CONT .Q0M REGAN; Protocol Last Titration: 10/24/24 18:30 Dose: 0 units/hr, 0 mls/hr Nitroglycerin/Dextrose (Nitroglycerin In 5% Dextrose 50 Mg) 50 mg in 250 mls @ 1.5 mls/hr IV CONT .Q24H REGAN; Protocol Last Admin: 10/24/24 18:00 Dose: 5 mcg/min, 1.5 mls/hr Losartan Potassium (Losartan Potassium 25 Mg Tablet) 25 mg PO DAILY [facility] Morphine Sulfate (Morphine Sulfate (*Crx) 2 Mg/Ml Inj) 2 mg IV PUSH Q5M PRN PRN Reason: Pain Rated 4-6 Last Admin: 10/24/24 16:45 Dose: 2 mg Nitroglycerin (Nitroglycerin Ointment 1 Inch Dose) 1 inch TRANSDERM Q6HR REGAN Last Admin: 10/24/24 15:50 Dose: 1 inch Rosuvastatin Calcium (Rosuvastatin 20 Mg Tablet) 20 mg PO QAM REGAN Sedation/Anesthesia: No previous sedation/anesthesia problems (including family history). [facility] Family History Family History Father Heart disease Hypertension CABG (coronary artery bypass graft) planned Liver cancer Other Diabetes mellitus Social History Social History Smoking status: Never smoker Alcohol intake: current Drinks per week: 10 Substance use: never Lack of Transportation: No Lack of Food: Never True Current Housing: I Have Housing Concerned About Future Housing: No Difficulty Paying Gas/Electric Bills: No Difficulty Paying for Meds: No Currently Unemployed: No Education: High School Diploma/GED Difficulty w/ Childcare or Family Care: No Spiritual care concerns: No Mod Sed Physical Exam Physical Exam Pre Procedural Exam: Normal: Appearance, Lungs, Heart Rate, Heart Rhythm, Extremities and Skin Hours since solid foods: 0 Hours since liquid intake: 0 Mallampati Classification: class III Internal Medicine - PN: Obj Da Vital Signs Vital Signs: Vital Signs - 24 hr 10/24/24 12:43 10/24/24 12:51 10/24/24 12:52 Temperature 36.1 C L Pulse Rate 60 57 L 56 L Respiratory Rate 16 20 19 Blood Pressure 168/100 H 160/98 H Pulse Oximetry 100 98 100 Oxygen Delivery 10/24/24 13:00 10/24/24 13:01 10/24/24 13:21 Temperature Pulse Rate 53 L 55 L 55 L Respiratory Rate 13 15 20 Blood Pressure 150/101 H Pulse Oximetry 100 100 100 Oxygen Delivery 10/24/24 13:30 10/24/24 13:45 10/24/24 13:54 Temperature Pulse Rate 57 L 60 60 Respiratory Rate 18 17 21 H Blood Pressure 158/97 H Pulse Oximetry 100 100 100 Oxygen Delivery 10/24/24 14:00 10/24/24 14:01 10/24/24 14:15 Temperature Pulse Rate 54 L 59 L 56 L Respiratory Rate 20 14 17 Blood Pressure 155/109 H Pulse Oximetry 100 100 Oxygen Delivery 10/24/24 14:16 10/24/24 14:17 10/24/24 14:38 Temperature Pulse Rate 56 L 62 54 L Respiratory Rate 18 15 16 Blood Pressure 144/99 H 144/99 H 154/101 H Pulse Oximetry 100 100 98 Oxygen Delivery 10/24/24 16:00 10/24/24 16:00 10/24/24 18:00 Temperature 36.6 C Pulse Rate 50 L 52 L Respiratory Rate 16 Blood Pressure 136/86 140/97 H Pulse Oximetry 98 Oxygen Delivery Room Air 10/24/24 18:02 Temperature Pulse Rate 54 L Respiratory Rate 19 Blood Pressure 140/97 H Pulse Oximetry 100 Oxygen Delivery Intake/Output Intake/Output: Intake & Output 10/21/24 10/22/24 10/23/24 10/24/24 23:59 23:59 23:59 23:59 Intake Total 41.7 Balance 41.7 Meds/Results Medications: Active Medications Generic Name Dose Route Start Last Admin Trade Name Freq PRN Reason Stop Dose Admin Heparin Sodium (Porcine) 4,000 units 10/24/24 13:40 Heparin Sodium 5,000 Units/Ml Vial IV PUSH PRN PRN aPTT less than 55 seconds Heparin Sodium (Porcine) 3,500 units 10/24/24 13:40 Heparin Sodium 5,000 Units/Ml Vial IV PUSH PRN PRN aPTT 55 - 70 seconds Heparin Sodium/Dextrose 25,000 units in 250 mls @ 0 mls/hr 10/24/24 13:40 10/24/24 18:30 Heparin Sodium/D5w 100 Units/Ml IV CONT 0 units/hr .Q0M REGAN 0 mls/hr Protocol Titration 0 UNITS/HR Nitroglycerin/Dextrose 50 mg in 250 mls @ 1.5 mls/hr 10/24/24 18:01 10/24/24 18:00 Nitroglycerin In 5% Dextrose 50 Mg IV CONT 5 mcg/min .Q24H RGEAN 1.5 mls/hr Protocol Administration 5 MCG/MIN Losartan Potassium 25 mg 10/25/24 09:00 Losartan Potassium 25 Mg Tablet PO DAILY [facility] Morphine Sulfate 2 mg 10/24/24 15:11 10/24/24 16:45 Morphine Sulfate (*Crx) 2 Mg/Ml Inj IV PUSH 2 mg Q5M PRN Administration Pain Rated 4-6 Nitroglycerin 1 inch 10/24/24 18:00 10/24/24 15:50 Nitroglycerin Ointment 1 Inch Dose TRANSDERM 1 inch Q6HR REGAN Administration Rosuvastatin Calcium 20 mg 10/25/24 09:00 Rosuvastatin 20 Mg Tablet PO QAM [facility] Radiology Results: ITS Impressions Chest X-Ray 10/24/24 13:23 IMPRESSION: 1. No acute cardiopulmonary disease. Labs 10/24/24 15:23 10/24/24 12:54 Labs: Laboratory Results - last 24 hr 10/24/24 10/24/24 12:54 15:23 WBC 5.3 8.2 RBC 4.19 L 4.17 L Hgb 13.5 L 13.4 L Hct 40.7 L 40.0 L MCV 97.1 95.9 MCH 32.2 32.1 MCHC 33.2 33.5 RDW 13.1 13.1 Plt Count 124 L 129 L MPV 11.3 H 11.2 H Immature Gran % (Auto) 0.4 0.4 Neut % (Auto) 65.5 86.0 H Lymph % (Auto) 25.2 9.5 L Whiteside % (Auto) 7.0 3.8 Eos % (Auto) 1.3 0.1 Baso % (Auto) 0.6 0.2 Lymph # (Auto) 1.34 0.78 L [place] # (Auto) 0.4 0.3 Eos # (Auto) 0.1 0.0 Baso # (Auto) 0.0 0.0 Abs Immat Gran (auto) 0.02 0.03 Absolute Neuts (auto) 3.5 7.0 H Absolute Nucleated RBC 0.000 0.000 Nucleated RBC % 0.0 0.0 % Immature Plt Fraction 7.6 7.7 PT 14.0 15.3 H INR 1.1 1.2 APTT 34.7 159.5 H Sodium 134 L Potassium 3.5 Chloride 100 Carbon Dioxide 21 L Anion Gap 13 H BUN 20 Creatinine 0.70 Estim Creat Clear Calc 111 Estimated GFR > 60 Glucose 147 H Calcium 9.3 Magnesium 1.9 Total Bilirubin 1.1 AST 31 ALT 31 Alkaline Phosphatase 55 Troponin I 0.089 H* 0.566 H* D Total Protein 7.8 Albumin 4.9 Triglycerides 133 Cholesterol 184 LDL Cholesterol Direct 88 HDL Direct 56 Lipase 55 ASA Classification/Sedation ASA Classification/Sedation ASA Class: III Emergent: No (Urgent) Risks: Risks, benefits and alternatives explained and patient/family accepted plan for sedation. Patient re-evaluated immediately prior to sedation.
--- NOTE | 2024-10-24 19:52 | WPDCARDPROC ---
Cardiac Cath Procedure Note Date of procedure:: 10/24/24 Performing physician:: CATHETERIZATION LABORATORY REPORT Procedure Date: 10/24/2024 Warp Tying Machine Tender: Aung Garay M.D., [facility]? Referring Physician: Dougie Aguilar M.D. Anesthesia: Versed and Fentanyl were ordered and given in my presence at 18:40, procedure ended at 19:41. Supervision of nurse monitored moderate sedation with Versed and Fentanyl was provided for 61 minutes. Total of Versed 1mg and Fentanyl 50mcg were administered by the Protective Signal Installer Helper JIM Thomas Pre-op Diagnosis: NSTEMI with ongoing chest pain Post-op Diagnosis: 1. Significant 99% subtotal occlusion of the mid LAD with very faint antegrade flow s/p successful PCI with BRANDT x 1 in the proximal-mid LAD. 2. Mild disease in LCX/OM and Ramus 3. Moderate mid RCA stenosis. 4. Elevated left ventricular end-diastolic pressure of 26mmHg. Procedure(s): 1. Moderate sedation 2. Ultrasound-guided access of the right radial artery 3. Coronary angiography 4. Left heart cath 5. PCI of the mid LAD with BRANDT x 1 in the proximal-mid LAD (3.5mm x 26mm Saul BRANDT; the mid and proximal portion of the stent were post-dilated to 4.0mm). 6. IVUS of the LAD Access Site: Right radial artery Brief History and Clinical Indications: Patient is a 58 year old male who is referred for urgent [facility] for NSTEMI with ongoing chest pain despite medical therapy. All risks, benefits and alternatives to left heart catheterization with or without percutaneous coronary intervention was discussed at length with the patient. Risk of complications including but not limited to bleeding, infection, arrhythmia, stroke, worsening kidney function, blood loss, groin hematoma, limb loss, emergency coronary artery bypass grafting, and even were discussed with the patient and all questions were answered. The patient understood and wished to proceed. Time out called, patient name, date of , medical record number, allergies, procedure performed, identify Warp Tying Machine Tender, patient and staff member concurred with accurate data, procedure carried on. Findings: LEFT HEART CATHETERIZATION FINDINGS: 1. Left main: The left main coronary artery is widely patent without any significant obstructive disease. 2. Left anterior descending: The mid LAD just after the bifurcation of the first diagonal branch and the first septal branch has a subtotal 99% stenosis with very faint antegrade flow. 3. Ramus: The Ramus has diffuse mild disease disease. 4. Left circumflex: The left circumflex artery and the main marginal branch has diffuse mild disease. 5. Right coronary artery: The RCA is the dominant vessel. The proximal-mid RCA has diffuse mild disease with an angiographically moderate 50% stenosis in the distal mid portion. The RPDA has luminal irregularities. The RPLV has mild diffuse disease. 6. Left ventricle: A. End-diastolic pressure 26 mmHg. B. LV gram deferred. C. No significant gradient across aortic valve on catheter pullback. Description of Procedure: Informed consent signed and placed in the chart. Patient transferred to pathology laboratory aide room. Prepped and draped in usual sterile fashion. 2% lidocaine injected subcutaneously in right wrist area. 22-gauge venipuncture catheter used to access the right radial artery under ultrasound guidance. 6-FR slender sheath placed in right radial artery. Nitroglycerine and Verapamil were given intraarterial through the sheath. Versacore wire advanced under fluoroscopy 5F Ultra 4 diagnostic catheter engaged Right Coronary Artery 5F Ultra 4 diagnostic catheter engaged Left Main Coronary Artery. Multiple orthogonal angiogram obtained and reviewed 5F Pigtail diagnostic catheter crossed aortic valve to obtain LVEDP, LV angiogram deferred. Hemostasis was achieved by application of TR band. ? Procedure Description for PCI: Angiomax was used for anticoagulation. 6F EBU 3.0 guide catheter was used to intubate the left main. 0.014 [place] coronary wire was passed in to the distal LAD. The lesion was pre-dilated with a 2.5 mm x 15 mm balloon inflated to high AKIL. Multiple balloon inflations done. IC NTG was administered. IVUS catheter advanced distal to the culprit LAD lesion. A 3.5 mm x 26 mm Saul BRANDT was successfully deployed into proximal-mid LAD. There was slow flow to the distal LAD after stent placement, therefore, IC Nipride was administered with improvement. IVUS catheter advanced distal to the stent. The proximal and mid portion of the stent was post-dilated with a 4.0 mm x 12 mm NC balloon inflated to high AKIL. Intracoronary Nipride was administered again. Follow-up angiograms showed a good result Coronary wire and guide-catheter were removed No angiographic complications identified. Disposition: ICU Plan: DAPT for 1 year followed by ASA indefinitely. High intensity statin. The above findings were discussed with the referring physician. Continue aggressive medical therapy and risk factor modification. ? Aung Garay M.D. Interventional Cardiology
--- NOTE | 2024-10-24 20:17 | ECG_ITS ---
Test Date: 2024-10-24 20:21:30 Measurements Intervals [place] Rate: 94 P: 0 AL: 0 QRS: 69 QRSD: 145 T: -34 QT: 411 QTc: 516 Interpretive Statements ATRIAL FIBRILLATION LEFT BUNDLE BRANCH BLOCK BASELINE ARTIFACT- I, III, AVR, AVL, AVF ABNORMAL ECG Compared to ECG 10/24/2024 15:28:08 Sinus bradycardia no longer present LEFT BUNDLE BRANCH BLOCK NOW PRESENT Electronically Signed On 10-25-2024 06:18:48 CDT by Rhys Burr D.O.
[2024-10-25] VITALS (18 sets, daily range): BP systolic 124–142; BP diastolic 86–102; PULSE 64–108; RESP 14–21; TEMP 36.7–37; O2SAT 93–99
--- NOTE | 2024-10-25 01:20 | ECG_ITS ---
Test Date: 2024-10-25 01:25:00 Measurements Intervals [place] Rate: 86 P: 50 ME: 203 QRS: -2 QRSD: 107 T: -14 QT: 388 QTc: 467 Interpretive Statements SINUS RHYTHM WITH OCCASIONAL VENTRICULAR PREMATURE COMPLEXES ANTEROSEPTAL INFARCT, AGE INDETERMINATE BORDERLINE ST-T WAVE ABNORMALITY- INFERIOR LEADS ABNORMAL ECG Compared to ECG 10/24/2024 20:21:30 Atrial fibrillation no longer present Left bundle-branch block no longer present Electronically Signed On 10-25-2024 09:01:59 CDT by Rhys Burr D.O.
[2024-10-25] MEDS: ONDANSETRON INJ 4 MG/2 ML VIAL IV PUSH (01:33)
[2024-10-25] MEDS: MORPHINE SULFATE (*CRX) 2 MG/ML INJ IV PUSH (01:44)
--- NOTE | 2024-10-25 01:44 | PC.NURSE ---
pt c/o nausea with mid sternal chest pressure which is non radiating given zofran 4 mg iv and morphine 2 mg iv. pt had emesis while preparing meds of food items. pressure relieved after emesis and 10 after morphine ekg performed
[2024-10-25 03:16] LABS: Hematocrit 39.3 % (42.0-52.0); Hemoglobin 13.5 g/dL (14.0-18.0); Immature Granulocyte Percent A 0.2 % (0-0.5); Immature Platelet Fraction Pct 7.2 % (0.9-11.2); Lymphocytes Absolute Auto 0.90 K/mm3 (0.9-3.2); Mean Corpuscular HGB Conc 34.4 g/dl (32-36); Mean Corpuscular Hemoglobin 32.3 pg (26-34); Mean Corpuscular Volume 94.0 fl (80-100); Nucleated Red Blood Cells Absolute Auto 0.000 K/mm3 (0.0-0.012); Nucleated Red Blood Cells Perc 0.0 % (0.0-0.2); Platelet Count Result 125 k/mm3 (150-375); Red Blood Count 4.18 M/mm3 (4.6-6.20); White Blood Count 6.5 K/mm3 (4.5-10.0)
[2024-10-25 03:35] LABS: Alanine Aminotransferase 40 U/L (6-50); Albumin Level 4.4 g/dL (3.5-5.1); Alkaline Phosphatase 47 U/L (38-126); Anion Gap 10 mmol/L (4-12); Aspartate Amino Transferase 175 U/L (17-59); Bilirubin,Total 1.3 mg/dL (0.2-1.3); Blood Urea Nitrogen 11 mg/dL (9-20); Calcium 9.3 mg/dL (8.4-10.2); Carbon Dioxide 21 mmol/L (22-30); Chloride 103 mmol/L (98-107); Cholesterol 175 mg/dL (0-200); Estimated CRCL calculation 122 ml/min; Estimated Glomerular Filt Rate > 60; Glucose 123 mg/dL (65-110); HDL Direct 57 mg/dL; Magnesium 1.9 mg/dL (1.6-2.3); Potassium 4.2 mmol/L (3.4-5.0); Sodium 134 mmol/L (137-145); Total Protein 7.3 g/dL (6.3-8.2); Triglycerides 91 mg/dL (<150)
[2024-10-25 03:43] LABS: Troponin I 33.600 ng/mL (0.000-0.034)
[2024-10-25] MEDS: TICAGRELOR 90 MG TABLET PO (08:49)
[2024-10-25] MEDS: LOSARTAN POTASSIUM 25 MG TABLET PO (08:49)
[2024-10-25] MEDS: ROSUVASTATIN 20 MG TABLET PO (08:49)
--- NOTE | 2024-10-25 09:27 | WPDCNINT ---
Assessment and Plan Assessment and plan (1) Non-ST elevation [place] (NSTEMI): Code(s): I21.4 - Non-ST elevation (NSTEMI) myocardial infarction Status: Acute Assessment and Plan: 10/24: Patient presented with chest pain, radiating left arm, and shortness of breath. EKG did not show any ischemic changes, troponins increased from 0.089 to 0.566. Patient continues to have 7/10 chest pain, echocardiogram showed wall motion abnormalities in the LAD distribution, patient was taken to the cardiac laborer chemical processing -found to have 99% sub total occlusion of the mid LAD, status post PTCA/PCI with BRANDT x1 to proximal-mid LAD, LV gram was deferred, LVEDP was 26 mmHg -patient did have reperfusion arrhythmias in the laborer chemical processing -continue aspirin, Brilinta, losartan, Crestor - patient may require beta-hunter, will discuss with Cardiology (2) Hypertension: Code(s): I10 - Essential (primary) hypertension Status: Acute Assessment and Plan: Continue course of (3) Hyperlipidemia: Code(s): E78.5 - Hyperlipidemia, unspecified Status: Acute Assessment and Plan: Continue Crestor Plan DVT prophylaxis: Status post coronary angiogram Stress ulcer prophylaxis: Not indicated Nutrition: Heart healthy diet Code Status: Full code Critical Care Time Spent: 47 minutes Due to a high probability of clinically significant, life threatening deterioration, the patient required my highest level of preparedness to intervene emergently and I personally spent this critical care time directly and personally managing the patient. This critical care time included obtaining a history; examining the patient; pulse oximetry; ordering and review of studies; arranging urgent treatment with development of a management plan; evaluation of patient's response to treatment; frequent reassessment; and discussions with other providers. It was exclusive of separately billable procedures and treating other patients and teaching time. Please see Assessment and Plan section and the rest of the note for further information on patient assessment and treatment This dictation may have been done utilizing a voice recognition system. Attempts have been made to correct errors. However, there may be uncorrected grammatical, spelling, and recognitions errors present. Mailroom Coordinator Consult Note Consult date: 10/25/24 Reason for consult: NSTEMI status post coronary angiogram that showed significant 99% subtotal occlusion of the mid LAD. status post PTCA/PCI with BRANDT x1 to proximal-mid LAD, LVEDP was 26 mmHg, LV gram was deferred HPI: Jed Moore is a 58 year old male with past medical history of hypertension, hyperlipidemia, family history of heart disease presented the hospital on 10/24/2024 with complains of chest pain. Patient developed substernal chest pain earlier on the day of admission described as feeling like there was a knot in his chest. 7/10 intensity. Constant since the onset. Radiation to the left arm. Denies any nausea, diaphoresis, syncope, shortness of breath or palpitations. Patient is a nonsmoker. Does not take any medications for his which hypertension. EKG did not show any ischemic changes. Troponins were 0.089, 0.566. Patient was admitted to the intermediate Unit 20 continue to have 7/10 chest pain, echocardiogram showed EF of 45-50%, apical septum and apical cap point akinetic, anteroseptal wall, apical lateral wall, apical inferior wall, mid inferior wall and mid and mid inferoseptal wall, are hypokinetic. Given that the patient had ongoing chest pain and wall motion abnormalities on the echocardiogram he was taken for the cardiac catheterization which showed significant 99% subtotal occlusion of the mid LAD. status post PTCA/PCI with BRANDT x1 to proximal-mid LAD, LV gram was deferred. Discussed with president and ceo who stated that post revascularization patient did have reperfusion arrhythmias. Patient was transferred to the ICU for further management Patient seen and examined this morning in the ICU, pleasant gentleman currently in no acute distress. States he feels much better, denies any chest pain, shortness of breath, diaphoresis, palpitations, nausea, vomiting. Hemodynamically stable, afebrile, decreased urine out Review of Systems Review of Systems: All systems reviewed & are unremarkable except as noted in HPI and below [facility] Past Medical History Medical History (Updated 10/24/24 @ 20:26 by Renate Bales APRN) Hyperlipidemia Prediabetes Hypertension Hyperglycemia Family History Family History Father Heart disease Hypertension CABG (coronary artery bypass graft) planned Liver cancer Other Diabetes mellitus Social History Social History Smoking status: Never smoker Alcohol intake: current Drinks per week: 10 Substance use: never Lack of Transportation: No Lack of Food: Never True Current Housing: I Have Housing Concerned About Future Housing: No Difficulty Paying Gas/Electric Bills: No Difficulty Paying for Meds: No Currently Unemployed: No Education: High School Diploma/GED Difficulty w/ Childcare or Family Care: No Spiritual care concerns: No Meds Home Medications and Allergies Home Medications ?Medication ?Instructions ?Recorded ?Confirmed ?Type lisinopril 20 mg tablet 20 mg PO DAILY 10/24/24 10/24/24 History Allergies Allergy/AdvReac Type Severity Reaction Status Date / Time Penicillins Allergy Rash Verified 10/24/24 12:46 Vital Signs Vital Signs - 24 hr 10/24/24 12:43 10/24/24 12:51 10/24/24 12:52 Temperature 97.0 F L Pulse Rate 60 57 L 56 L Respiratory Rate 16 20 19 Blood Pressure 168/100 H 160/98 H Pulse Oximetry 100 98 100 Oxygen Delivery 10/24/24 13:00 10/24/24 13:01 10/24/24 13:21 Temperature Pulse Rate 53 L 55 L 55 L Respiratory Rate 13 15 20 Blood Pressure 150/101 H Pulse Oximetry 100 100 100 Oxygen Delivery 10/24/24 13:30 10/24/24 13:45 10/24/24 13:54 Temperature Pulse Rate 57 L 60 60 Respiratory Rate 18 17 21 H Blood Pressure 158/97 H Pulse Oximetry 100 100 100 Oxygen Delivery 10/24/24 14:00 10/24/24 14:01 10/24/24 14:15 Temperature Pulse Rate 54 L 59 L 56 L Respiratory Rate 20 14 17 Blood Pressure 155/109 H Pulse Oximetry 100 100 Oxygen Delivery 10/24/24 14:16 10/24/24 14:17 10/24/24 14:38 Temperature Pulse Rate 56 L 62 54 L Respiratory Rate 18 15 16 Blood Pressure 144/99 H 144/99 H 154/101 H Pulse Oximetry 100 100 98 Oxygen Delivery 10/24/24 16:00 10/24/24 16:00 10/24/24 18:00 Temperature 98 F Pulse Rate 50 L 52 L Respiratory Rate 16 Blood Pressure 136/86 140/97 H Pulse Oximetry 98 Oxygen Delivery Room Air 10/24/24 18:00 10/24/24 18:02 10/24/24 20:29 Temperature 98.3 F Pulse Rate 61 54 L 83 Respiratory Rate 19 15 Blood Pressure 140/97 H 133/88 Pulse Oximetry 100 100 Oxygen Delivery 10/24/24 20:35 10/24/24 20:35 10/24/24 20:36 Temperature 98.3 F Pulse Rate 83 83 83 Respiratory Rate 15 14 Blood Pressure 133/88 Pulse Oximetry 100 100 Oxygen Delivery Room Air 10/24/24 21:05 10/24/24 21:17 10/24/24 22:00 Temperature 98.3 F Pulse Rate 85 83 89 Respiratory Rate 16 17 18 Blood Pressure 114/79 128/94 H 134/92 H Pulse Oximetry 99 100 99 Oxygen Delivery 10/24/24 22:00 10/24/24 22:35 10/25/24 00:00 Temperature Pulse Rate 83 85 73 Respiratory Rate 16 16 Blood Pressure 108/87 Pulse Oximetry 97 97 Oxygen Delivery Room Air 10/25/24 00:00 10/25/24 00:00 10/25/24 00:45 Temperature Pulse Rate 73 73 71 Respiratory Rate 16 18 Blood Pressure 126/89 128/86 Pulse Oximetry 93 98 Oxygen Delivery 10/25/24 01:00 10/25/24 01:45 10/25/24 02:00 Temperature Pulse Rate 76 80 80 Respiratory Rate 18 16 Blood Pressure 126/100 H 140/94 H Pulse Oximetry 97 96 Oxygen Delivery 10/25/24 02:00 10/25/24 02:32 10/25/24 02:45 Temperature 98.2 F Pulse Rate 75 79 74 Respiratory Rate 16 16 16 Blood Pressure 130/91 H 127/90 126/96 H Pulse Oximetry 97 97 98 Oxygen Delivery 10/25/24 03:00 10/25/24 04:00 10/25/24 04:00 Temperature Pulse Rate 74 71 71 Respiratory Rate 16 16 Blood Pressure Pulse Oximetry 97 97 Oxygen Delivery Room Air Room Air 10/25/24 05:00 10/25/24 06:00 10/25/24 06:00 Temperature 98.2 F 98.1 F Pulse Rate 64 66 64 Respiratory Rate 16 16 Blood Pressure 130/102 H 130/102 H Pulse Oximetry 99 98 Oxygen Delivery 10/25/24 08:00 10/25/24 08:00 10/25/24 08:00 Temperature Pulse Rate 108 H 108 H 108 H Respiratory Rate 21 H 21 H Blood Pressure 142/91 H Pulse Oximetry 98 97 Oxygen Delivery Room Air 10/25/24 09:07 Temperature 98.4 F Pulse Rate Respiratory Rate Blood Pressure Pulse Oximetry Oxygen Delivery Exam Narrative: General: Pleasant gentleman in no acute distress HEENT:? Pupils equal and reactive, sclera is clear, moist oral mucous Neck:? Supple Respiratory:? Clear to auscultation bilaterally, no wheezing, adequate air entry Cardiac:? S1-S2 is normal, regular rate rhythm, no murmur Abdomen:? Soft, nontender, nondistended, normoactive bowel sounds Extremities:? Right upper extremity angiogram site has mild ecchymosis and swelling, palpable radial pulse on the right side. Pedal pulses intact Neuro:? Patient is awake, alert, oriented, nonfocal, answers to questions appropriately and follows simple commands Skin:? No skin lesions noted Psych:? Normal mentation and affect Results Labs 10/25/24 03:11 10/25/24 03:11 Labs: Short CBC 10/24/24 10/24/24 10/25/24 Range/Units 12:54 15:23 03:11 WBC 5.3 8.2 6.5 (4.5-10.0) K/mm3 Hgb 13.5 L 13.4 L 13.5 L (14.0-18.0) g/dL Hct 40.7 L 40.0 L 39.3 L (42.0-52.0) % Plt Count 124 L 129 L 125 L (150-375) k/mm3 BMP 10/24/24 10/25/24 12:54 03:11 Sodium 134 L 134 L Potassium 3.5 4.2 Chloride 100 103 Carbon Dioxide 21 L 21 L BUN 20 11 D Creatinine 0.70 0.63 L Glucose 147 H 123 H Calcium 9.3 9.3 Cardiac Enzymes 10/24/24 10/24/24 10/25/24 Range/Units 12:54 15:23 03:11 Troponin I 0.089 H* 0.566 H* D 33.600 H* (0.000-0.034) ng/mL Liver Function 10/24/24 10/25/24 Range/Units 12:54 03:11 Total Bilirubin 1.1 1.3 (0.2-1.3) mg/dL AST 31 175 H (17-59) U/L ALT 31 40 (6-50) U/L Alkaline Phosphatase 55 47 (38-126) U/L Albumin 4.9 4.4 (3.5-5.1) g/dL Quality VTE Prophylaxis VTE prophylaxis: mechanical ordered Hospitalist MIPS Advance Care Plan I have confirmed that the patient's Advanced Care Plan is present, code status is documented, or surrogate decision maker is listed in patient medical record.: Yes Medication Reconciliation I have utilized all available resources to obtain, update and review the patients current medications (includes all prescriptions, OTC, herbals, cannabis, and nutritional supplements).: Yes
--- NOTE | 2024-10-25 14:15 | PM.DS ---
DS: Admitting Diagnosis Discharge Date 10/25/2024 Admitting Diagnosis NSTEMI DS: Discharge Diagnosis Discharge Diagnosis (1) Non-ST elevation [place] (NSTEMI): Code(s): I21.4 - Non-ST elevation (NSTEMI) myocardial infarction Status: Acute (2) Hypertension: Code(s): I10 - Essential (primary) hypertension Status: Acute (3) Hyperlipidemia: Code(s): E78.5 - Hyperlipidemia, unspecified Status: Acute Plan NSTEMI -status post PCI with residual RCA moderate stenosis at 50% to be medically manage -continue aspirin 81 mg p.o. daily Brilinta 90 mg p.o. b.i.d., rosuvastatin 20 mg every evening metoprolol succinate 25 mg p.o. daily, and losartan 25 mg p.o. daily -he can discontinue his lisinopril Coronary artery disease -given his moderate stenosis of the RCA, would recommend aggressive lipid-lowering strategy Ischemic cardiomyopathy -he is not in heart failure -start metoprolol succinate 25 mg p.o. daily -continue losartan 25 mg p.o. daily -outpatient follow-up for re-evaluation of his systolic function from 3-6 months Hyperlipidemia -continue rosuvastatin 20 mg every evening with goal LDL less than 55 He [place] over 2 hours away and will find a local sizing sprayer to follow up with. He will pursue cardiac rehab near his home. His diagnosis and medical management have been discussed with and all questions have been answered. DS: Summary Hospital Course Reason for hospitalization: Chest pain Hospital Course: 58-year-old man with hypertension hyperlipidemia presented with chest pain found to have NSTEMI brought to the cardiac prosthetics lab technician urgently for primary PCI to the mid LAD. His chest pain has resolved and overall is doing well and able to ambulate without any cardiopulmonary limitations at this time. He was also found to ischemic cardiomyopathy for which he was placed on beta blockade as well as angiotensin receptor blockade. All questions were answered patient is overall doing well and ready for discharge. Status at Discharge Functional status at discharge: independent ambulation Overall status at discharge: patient is progressing back to baseline Time Spent with Patient Time attestation: Total time spent providing and/or coordinating discharge services: Time spent: Greater than 30 minutes Exam Const: General: comfortable HENMT: Mouth: Yes moist mucous membranes Eyes: EOM: EOMs intact bilaterally Neck: Neck: no JVD Resp: Effort & Inspection: normal respiratory effort Auscultation: clear to auscultation bilaterally Cardio: Rate: regular rate Rhythm: regular rhythm Other: Right radial pulse 2 +. No hematoma. GI: GI Palp: Yes Soft to palpation Extrem: General: normal to inspection DS: Data Data Completed and Pending Labs on day of discharge: Labs from last 24 hours 10/25/24 10/24/24 10/24/24 03:11 15:23 12:54 WBC 6.5 8.2 RBC 4.18 L 4.17 L Hgb 13.5 L 13.4 L Hct 39.3 L 40.0 L MCV 94.0 95.9 MCH 32.3 32.1 MCHC 34.4 33.5 RDW 13.2 13.1 Plt Count 125 L 129 L MPV 11.3 H 11.2 H Immature Gran % (Auto) 0.2 0.4 Neut % (Auto) 77.4 H 86.0 H Lymph % (Auto) 13.9 L 9.5 L Mcmullen % (Auto) 8.0 3.8 Eos % (Auto) 0.3 0.1 Baso % (Auto) 0.2 0.2 Lymph # (Auto) 0.90 0.78 L Mcmullen # (Auto) 0.5 0.3 Eos # (Auto) 0.0 0.0 Baso # (Auto) 0.0 0.0 Abs Immat Gran (auto) 0.01 0.03 Absolute Neuts (auto) 5.0 7.0 H Absolute Nucleated RBC 0.000 0.000 Nucleated RBC % 0.0 0.0 % Immature Plt Fraction 7.2 7.7 PT 15.3 H INR 1.2 APTT 159.5 H Sodium 134 L Potassium 4.2 Chloride 103 Carbon Dioxide 21 L Anion Gap 10 BUN 11 D Creatinine 0.63 L Estim Creat Clear Calc 122 Estimated GFR > 60 Glucose 123 H Calcium 9.3 Phosphorus 3.9 Magnesium 1.9 1.9 Total Bilirubin 1.3 AST 175 H ALT 40 Alkaline Phosphatase 47 Troponin I 33.600 H* 0.566 H* D Total Protein 7.3 Albumin 4.4 Triglycerides 91 133 Cholesterol 175 184 LDL Cholesterol Direct 83 88 HDL Direct 57 56 Discharge Plan Discharge Attending physician on discharge: Hector Lei Consulting providers: Romy Rausch; Destin Spence; Christiano Crews Discharging Clinician: Hector Lei Anticipated Discharge Date/Time: 10/25/24 14:21 Patient Disposition: Home Activity: may shower and other - see discharge instructions Diet: heart healthy Wound Care Instructions: follow printed instructions Patient Instructions: Antibiotic Form, Losartan (By mouth), Rosuvastatin (By mouth), Ticagrelor (By mouth), Heart Healthy Diet (GEN), After Radial Heart Catheterization (GEN), Left Heart Catheterization (GEN) Patient Language: Slovenian Stand Alone Forms: General Discharge Information Follow-up/Referrals: Hector Lei MD [Physician, Interventional Cardiology] Discharge Medications: New losartan 25 mg Tablet 25 mg PO DAILY Qty: 90 0RF metoprolol succinate [Toprol XL] 25 mg Tablet Extended Release 24 Hr 25 mg PO QAM Qty: 90 0RF rosuvastatin 20 mg Tablet 20 mg PO QHS Qty: 90 0RF ticagrelor [Brilinta] 90 mg Tablet 90 mg PO Q12HR Qty: 180 0RF aspirin 81 mg Tablet,Delayed Release (Dr/Ec) 81 mg PO QAM Qty: 90 0RF Discontinued lisinopril 20 mg tablet 20 mg PO DAILY Date of admission: 10/24/24 14:04 Primary Care Provider: PHYSICIAN,CRYPTOLOGIC TECHNICIAN OPERATOR/ANALYST Admitting Provider: Zeb Valentine Attending physician on admission: Zeb Valentine Condition: Stable
--- NOTE | 2024-10-25 15:03 | PCCCNOTE ---
Client Hr Manager contacted [facility] for prescriptions listed for Med to bed status. It is reported that they are currently working on 5 at the time. The patient's information/date of was given to follow up and contact CC back. CC shared information with attending nurse.
[2024-10-25] MEDS: ASPIRIN 81 MG ENTERIC TABLET PO (15:23)
[2024-10-25] MEDS: METOPROLOL SUCCINATE EXT REL 25 MG TABCR PO (15:24)
== END 2024-10-25 16:25 | disposition home or self-care (01) | DRG 322 ==
LOC: ANHED 14:04 → ANHICU 20:16 → ANHIMU 10-26 10:33
PROVIDERS: Internal Medicine; Nurse Practitioner Gerontology; Student in an Organized Health Care Education/Training Program; Admitting Provider General Practice; Emergency Provider Emergency Medicine; Visit Provider Internal Medicine
PROC: 4A023N7 Measurement of Cardiac Sampling and Pressure, Left Heart, Percutaneous Approach (ICD-10-PCS; CPT 93452; principal; 2024-10-24 18:15)
PROC: 027034Z Dilation of Coronary Artery, One Artery with Drug-eluting Intraluminal Device, Percutaneous Approach (ICD-10-PCS; 2024-10-24 18:15)
PROC: 027034Z Dilation of Coronary Artery, One Artery with Drug-eluting Intraluminal Device, Percutaneous Approach (ICD-10-PCS; 2024-10-24 18:15)
DX: I21.4 Non-ST elevation (NSTEMI) myocardial infarction (principal); E87.1 Hypo-osmolality and hyponatremia; I25.10 Atherosclerotic heart disease of native coronary artery without angina pectoris; I25.5 Ischemic cardiomyopathy; I10 Essential (primary) hypertension; E78.5 Hyperlipidemia, unspecified; R73.03 Prediabetes; F10.90 Alcohol use, unspecified, uncomplicated
CPT/HCPCS: 36415; 71046; 80053; 80061; 83690; 83735; 84100; 84484; 85025; 85055; 85610; 85730; 92978; 93005; 93458; 99285; A9270; C1725; C1753; C1769; C1874; C1887; C1894; C8929; C9600; J0583; J1644; J2003; J2250; J2270; J2305; J2405; J3010; J7040; Q9957